=== PATIENT | female | born 1965 | race Caucasian/White ===

== ENCOUNTER 2017-07-14 08:37 | Emergency (ER) | payer OTHER ==
[~2017-07-14] VITALS: Ht 167.6 cm; Wt 80.7 kg
[~2017-07-14 08:37] MED LIST: CITA10TA8 PO
--- NOTE | 2017-07-14 08:54 | PHYS DOC ---
Past History Past Medical History: Depression, Diverticulitis Past Surgical History: Additional Past Surgical Histo: D&C Smoking: Cigarettes Alcohol Use: Occasionally Drug Use: None Adult General HPI HPI Patient is a 52 year old F who presents with LLQ abd pain. Patient has a history of diverticulitis. Patient states for the past 3 days she's developed some left lower quadrant pain with dark stools and mucus in her stools however denies any fevers. Patient denies any nausea or vomiting. Patient states she has frequent bouts of diverticulitis. Patient is no other complaints. Review of Systems Review of Systems GEN: Denies fevers, chills, sweats HEENT: Denies blurred vision, sore throat CV: Denies chest pain RESP: Denies shortness of air, cough GI: Abdominal pain NEURO: Denies confusion, dizziness MSK: Denies weakness, joint pain/swelling Allergies Allergies Allergies Coded Allergies Type Severity Reaction Last Updated Verified Penicillins Allergy Unknown Itching 12/15/14 Yes Physical Exam Physical Exam GEN.: No apparent distress. Alert and oriented. HEENT: Head is normocephalic, atraumatic NECK: Supple. LUNGS: CTAB. HEART: RRR, S1, S2 present. Peripheral pulses intact ABDOMEN: Soft, tenderness palpation left lower quadrant, rebound tenderness, voluntary guarding, no abdominal distention. Positive bowel sounds. EXTREMITIES: Without any cyanosis. NEUROLOGIC: Normal speech, normal tone PSYCHIATRIC: Normal affect, normal mood. SKIN: No ulcerations Current Patient Data Vital Signs Laboratory Tests Test 07/14/17 09:04 07/14/17 09:05 White Blood Count 10.7 x10^3/uL Red Blood Count 4.43 x10^6/uL Hemoglobin 13.5 g/dL Hematocrit 39.5 % Mean Corpuscular Volume 89 fL Mean Corpuscular Hemoglobin 30 pg Mean Corpuscular Hemoglobin Concent 34 g/dL Red Cell Distribution Width 13.0 % Platelet Count 272 x10^3/uL Neutrophils (%) (Auto) 77 % Lymphocytes (%) (Auto) 14 % Monocytes (%) (Auto) 7 % Eosinophils (%) (Auto) 1 % Basophils (%) (Auto) 1 % Neutrophils # (Auto) 8.1 x10^3uL Lymphocytes # (Auto) 1.5 x10^3/uL Monocytes # (Auto) 0.8 x10^3/uL Eosinophils # (Auto) 0.2 x10^3/uL Basophils # (Auto) 0.1 x10^3/uL Sodium Level 142 mmol/L Potassium Level 4.2 mmol/L Chloride Level 107 mmol/L Carbon Dioxide Level 26 mmol/L Anion Gap 9 Blood Urea Nitrogen 15 mg/dL Creatinine 0.8 mg/dL Estimated GFR (Cockcroft-Gault) 74.7 BUN/Creatinine Ratio 19 Glucose Level 100 mg/dL Lactic Acid Level 1.5 mmol/L Calcium Level 9.1 mg/dL Total Bilirubin 0.4 mg/dL Aspartate Amino Transf (AST/SGOT) 10 U/L Alanine Aminotransferase (ALT/SGPT) 26 U/L Alkaline Phosphatase 85 U/L Total Protein 7.2 g/dL Albumin 3.5 g/dL Albumin/Globulin Ratio 0.9 Lipase 63 U/L Urine Collection Type Unknown Urine Color Yellow Urine Clarity Hazy Urine pH 5.5 Urine Specific Fence 1.020 Urine Protein Neg Urine Glucose (UA) Neg mg/dL Urine Ketones (Stick) Neg mg/dL Urine Blood Small Urine Nitrite Neg Urine Bilirubin Neg Urine Urobilinogen Dipstick 0.2 mg/dL Urine Leukocyte Esterase Trace Urine RBC 1-2 /HPF Urine WBC 1-4 /HPF Urine Squamous Epithelial Cells Many /LPF Urine Bacteria Few /HPF Urine Mucus Slight /LPF Current Medications Medications (Trade) Dose Ordered Sig/Mary Route PRN Reason Start Time Stop Time Status Last Admin Dose Admin Sodium Chloride 1,000 ml @ 1,000 mls/hr 1X ONCE IV 07/14/17 09:00 07/14/17 09:59 DC 07/14/17 09:00 Iohexol (Omnipaque 300 Mg/ml) 75 ml 1X ONCE IV 07/14/17 09:00 07/14/17 09:05 DC 07/14/17 09:24 Info (Do NOT chart on this entry -- for MONITORING) 1 each PRN DAILY PRN MC SEE COMMENTS 07/14/17 09:15 07/16/17 09:14 Fentanyl Citrate (Fentanyl 2ml Vial) 100 mcg STK-MED ONCE .ROUTE 07/14/17 09:51 07/14/17 09:52 DC Fentanyl Citrate (Fentanyl 2ml Vial) 50 mcg 1X ONCE IV 07/14/17 10:00 07/14/17 10:06 DC 07/14/17 10:00 EKG EKG [] Radiology/Procedures Radiology/Procedures CT scan abdomen pelvis shows acute diverticulitis no abscess or perforation[] Course & Med Decision Making Course & Med Decision Making Pertinent Labs and Imaging studies reviewed. (See chart for details) ED course: Patient was seen and examined emergency room abdominal workup was ordered along with a CT scan abdomen pelvis 1025: Patient up date on CT findings and plan to discharge home with oral antibiotics and short-term follow-up with PCP. MDM: After reviewing the chart, CC/HPI/PMH, physical exam, [lab results], [ radiological results], I do not believe the patient has a surgical emergency and the abdomen warm team further workup and/or admission at this time. Patient has not complicated diverticulitis pigmy treated with oral antibiotics and discharged home. Recommended short-term follow-up with PCP for further evaluation and management. Patient is stable for discharge. Additional verbal discharge instructions were provided to the patient and that if symptoms get worse or any new symptoms arise that are worrisome to the patient she is to return to the emergency room immediately [] Dragon Disclaimer Dragon Disclaimer This chart was dictated in whole or in part using Voice Recognition software in a busy, high-work load, and often noisy Emergency Department environment. It may contain unintended and wholly unrecognized errors or omissions. Departure Departure: Impression: Primary Impression: Diverticulitis Disposition: 01 HOME, SELF-CARE Condition: IMPROVED Referrals: JOSE RAUL STUART (PCP) Patient Instructions: Diverticulitis, [id number] Additional Instructions: Please follow up with your family physician in the next one to 2 days return if symptoms increase Scripts Metronidazole (FLAGYL) 500 Mg Tablet 500 MG PO TID for 10 Days, #30 TAB Prov: MARLYS BURCH DO 07/14/17 Ciprofloxacin Hcl (CIPRO) 500 Mg Tablet 1 TAB PO BID, #20 TAB Prov: MARLYS BURCH DO 07/14/17 MARLYS BURCH DO Jul 14, 2017 08:54
[2017-07-14 08:55] VITALS: BP 147/83
[2017-07-14] MEDS: IV NORMAL SALINE 1,000ML 1,000 ML IV ONE (09:00)
[2017-07-14] MEDS ORDERED: CONTRAST GIVEN MC PRN (09:15)
[2017-07-14 09:20] LABS: BASO # 0.1 x10^3/uL (0.0-0.2); BASO % 1 % (0-3); EOS # 0.2 x10^3/uL (0.0-0.7); EOS % 1 % (0-3); HEMATOCRIT 39.5 % (36.0-47.0); HEMOGLOBIN 13.5 g/dL (12.0-15.5); LYMPH # 1.5 x10^3/uL (1.0-4.8); LYMPH % 14 % (24-48); MEAN CORPUSCULAR HEMOGLOBIN 30 pg (25-35); MEAN CORPUSCULAR HGB CONC 34 g/dL (31-37); MEAN CORPUSCULAR VOLUME 89 fL (79-100); MONO # 0.8 x10^3/uL (0.0-1.1); MONO % 7 % (0-9); NEUT # 8.1 x10^3uL (1.8-7.7); NEUT % 77 % (31-73); PLATELET COUNT 272 x10^3/uL (140-400); RED BLOOD COUNT 4.43 x10^6/uL (3.50-5.40); WHITE BLOOD COUNT 10.7 x10^3/uL (4.0-11.0)
[2017-07-14] MEDS: IOHEXOL 300 MG/ML 75 ML VIAL. IV ONE (09:24)
[2017-07-14 09:33] LABS: BILIRUBIN,URINE NEG (NEG); CLARITY,URINE HAZY; COLOR,URINE YELLOW; GLUCOSE,URINE NEG (NEG)
[2017-07-14 09:34] LABS: BACTERIA,URINE FEW /HPF (0-FEW); NITRITE,URINE NEG (NEG); SQUAMOUS EPITHELIAL CELL,UR MANY /LPF; UROBILINOGEN,URINE 0.2 mg/dL (0.2 mg/dL)
[2017-07-14 09:35] LABS: ALBUMIN 3.5 g/dL (3.4-5.0); ALBUMIN/GLOBULIN RATIO 0.9 (1.0-1.7); CALCIUM 9.1 mg/dL (8.5-10.1); CREATININE 0.8 mg/dL (0.6-1.0); GFR 74.7; POTASSIUM 4.2 mmol/L (3.5-5.1); TOTAL BILIRUBIN 0.4 mg/dL (0.2-1.0); TOTAL PROTEIN 7.2 g/dL (6.4-8.2)
--- NOTE | 2017-07-14 09:59 | RAD ---
CT scan of the abdomen and pelvis with contrast 07/14/2017 Clinical history: Left lower quadrant abdominal pain for 2 days. Technique: After the intravenous administration of 75 cc of Omnipaque 300, contiguous, 5 mm axial sections were obtained through the abdomen and pelvis. One or more of the following individualized dose reduction techniques were utilized for this study: 1. Automated exposure control. 2. Adjustment of the mA and/or kV according to patient size. 3. Use of iterative reconstruction technique. Findings: Images through the lung bases are within normal limits. Decreased attenuation of the liver parenchyma seen consistent with fatty infiltration. The liver is mildly enlarged measuring 22 cm in length. The spleen, pancreas, adrenal glands and kidneys are within normal limits. The abdominal aorta tapers normally. Calcified gallstone is seen within the dependent portions of the gallbladder. No free fluid or free air is seen within the abdomen. Air and stool seen throughout the colon. Multiple diverticula are seen involving the colon. No inflammatory changes are seen in the adjacent fat. The appendix is well visualized and within normal limits. Multiple diverticula are seen involving the sigmoid colon. Wall thickening of the distal and mid sigmoid colon is seen. Increased density is seen within the adjacent fat. These findings are consistent with sigmoid diverticulitis. No abnormal fluid collection is seen to suggest evidence of an abscess. Images through the pelvis demonstrate the urinary bladder distended with urine. A small amount of free fluid is seen within the pelvis. Calcifications are seen within the pelvis consistent with phleboliths. Degenerative changes are seen involving the lower thoracic and mid and lower lumbar spine and both hips. Impression: Findings are seen consistent with sigmoid diverticulitis. No abscess is seen.
[2017-07-14] MEDS ORDERED: CIPR500T94 PO (10:27)
[2017-07-14] MEDS ORDERED: METR500T PO (10:27)
== END 2017-07-14 10:36 | disposition home or self-care (01) ==
LOC: ER 08:37
DX: K57.92 Diverticulitis of intestine, part unspecified, without perforation or abscess without bleeding (principal); F17.210 Nicotine dependence, cigarettes, uncomplicated; Z88.0 Allergy status to penicillin
CPT/HCPCS: 36415; 74177; 80053; 81001; 83605; 83690; 85025; 87086; 96361; 96374; J3010; Q9967; 99285-25; J7030

== ENCOUNTER 2018-08-05 17:00 | Emergency (ER) | payer OTHER ==
[~2018-08-05] VITALS: Ht 167.6 cm; Wt 80.0 kg
[~2018-08-05 17:00] MED LIST changes: +CIPR500T94 PO; +METR500T PO
[2018-08-05] MEDS ORDERED: BACITRACIN ZINC TOPICAL OINT PACKET. TP ONE (18:30)
[2018-08-05] MEDS ORDERED: AMOXICILLIN/K CLAV 875/125MG TABLET. PO ONE (18:30)
[2018-08-05] MEDS ORDERED: DIPHTH,PERTUSS(ACELL),TET TOX 0.5 ML DISP.SYRIN. VAX IM ONE (18:30)
[2018-08-05] MEDS ORDERED: AMOX1TAB61 PO (19:28)
--- NOTE | 2018-08-05 19:29 | PHYS DOC ---
Past History Past Medical History: No Pertinent History Past Surgical History: , Other Additional Past Surgical Histo: D&C, shoulder Smoking: Cigarettes Alcohol Use: None Drug Use: None Adult General Chief Complaint Chief Complaint: ANIMAL BITE HPI HPI 53-year-old female presents she was out walking her dog and her neighbors dog ended up coming up and trying to fight with her dog. Patient subsequently ended up getting bit to her left pinky finger as well as to her left calf. Patient reports last tetanus booster greater than 5 years ago. Patient reports the other dog was reportedly up-to-date on its vaccinations however animal control was keeping the dog "quarantined ". Patient reports pain worse to her left pinky finger and is concerned it might be broken. Denies other injury. Review of Systems Review of Systems Constitutional: Denies fever or chills [] Eyes: Denies change in visual acuity, redness, or eye pain [] HENT: Denies nasal congestion or sore throat [] Respiratory: Denies cough or shortness of breath [] GI: Denies abdominal pain, nausea, vomiting, or diarrhea [] : Denies dysuria or hematuria [] Musculoskeletal: Reports pain to left pinky finger and left calf at site of dog bites Integument: Abrasions/lacerations/puncture wound to left calf and left pinky finger Neurologic: Denies headache, focal weakness or sensory changes [] Complete systems were reviewed and found to be within normal limits, except as documented in this note. Current Medications Current Medications Current Medications Medications (Trade) Dose Ordered Sig/Mary Start Time Stop Time Status Last Admin Dose Admin Amoxicillin/ Clavulanate Potassium (Augmentin 875/ 125mg) 1 tab 1X ONCE 08/05/18 18:30 08/05/18 18:39 DC 08/05/18 19:05 1 TAB Bacitracin (Bacitracin Topical Pkt) 1 pkt 1X ONCE 08/05/18 18:30 08/05/18 18:33 DC 08/05/18 19:05 1 PKT Diphtheria/ Tetanus/Acell Pertussis (Boostrix) 0.5 ml ONCE ONCE 08/05/18 18:30 08/05/18 18:33 DC 08/05/18 19:07 0.5 ML Allergies Allergies Allergies Coded Allergies Type Severity Reaction Last Updated Verified Penicillins Allergy Unknown Itching 12/15/14 Yes Physical Exam Physical Exam Constitutional: Well developed, well nourished, no acute distress, non-toxic appearance. [] HENT: Normocephalic, atraumatic Eyes: Conjunctiva normal, no discharge. [] Neck: Normal range of motion, no tenderness, supple Cardiovascular: Heart rate regular rhythm, capillary refill less than 2 seconds , bilateral radial and posterior tibialis pulses +2/4 Lungs & Thorax: Bilateral breath sounds clear to auscultation [] Skin: Warm, dry, three superficial lacerations to posterior aspect of left calf , small puncture wound noted to left distal pinky finger. Mild ecchymosis noted to left pinky finger as well Extremities: No tenderness, range of motion intact, dog bites as mentioned above. Neurologic: Alert and oriented X 3, normal motor function, normal sensory function, no focal deficits noted. [] Psychologic: Affect normal, judgement normal, mood normal. [] Current Patient Data Vital Signs Vital Signs Date Time Temp Pulse Resp B/P (MAP) Pulse Ox O2 Delivery O2 Flow Rate FiO2 08/05/18 17:00 98.0 105 20 98 Room Air EKG EKG [] Radiology/Procedures Radiology/Procedures PROCEDURE: FINGER(S) LEFT History: Dog bite. The distal 5th digit pain. Comparison: None. Findings: Frontal view left hand. Oblique and lateral views of the 5th digit of left hand. No acute fracture or dislocation is identified. No radiopaque foreign body seen within the 5th digit. Impression: No acute osseous abnormality identified. Electronically signed by: Sancho Burch MD (08/05/2018 8:50 PM) [facility] DICTATED AND SIGNED BY: SANCHO BURCH MD DATE: 08/05/182048 Course & Med Decision Making Course & Med Decision Making Pertinent Labs and Imaging studies reviewed. (See chart for details) Patient presents with report of dog bite to left pinky finger as well as left calf. Tetanus updated. Wounds cleaned and dressed. Empiric antibiotics initiated. Patient did report some allergy to penicillin when patient was in her 20s which caused some itching. Discussed with patient and elected to proceed with Augmentin. Patient without any side effects while monitored in the department. XR of left pinky finger without definative sign of acute fracture. Cannot fully exclude nondisplaced fracture. Finger splint applied for comfort. Patient stable for discharge with outpatient follow-up with PCP. Discussed findings and plan with patient, who acknowledges understanding and agreement. Aryan Disclaimer Dragon Disclaimer This electronic medical record was generated, in whole or in part, using a voice recognition dictation system. Departure Departure: Impression: Primary Impression: Dog bite Additional Impression: Finger sprain Disposition: 01 HOME, SELF-CARE Condition: STABLE Referrals: JOSE RAUL STUART (PCP) Patient Instructions: Animal Bite, [id number] Additional Instructions: Use over the counter Tylenol or Ibuprofen for pain. Keep area clean and dry. Clean daily with soap and water. Do not soak wound. Dress area with bandage and use over the counter antibiotic ointment. Scripts Amoxicillin/Potassium Clav (AUGMENTIN 875-125 TABLET) 1 Each Tablet 1 TAB PO BID, #14 TAB Prov: SANCHO KIRKPATRICK DO 08/05/18 Splinting Splinting : Location: left pinky finger Pre-Made Type: metal (finger splint) Splint: finger splint Pre-Proc Neuro Vasc Exam: normal Post-Proc Neuro Vasc Exam: normal, unchanged from pre-exam Problem Qualifiers Primary Impression: Dog bite Encounter type: initial encounter Qualified Codes: W54.0XXA - Bitten by dog , initial encounter Additional Impression: Finger sprain Encounter type: initial encounter Finger: little finger Sprain of finger site: interphalangeal joint Laterality: left Qualified Codes: S63.637A - Sprain of interphalangeal joint of left little finger, initial encounter SANCHO KIRKPATRICK DO Aug 05, 2018 19:29
[2018-08-05 19:41] VITALS: BP 150/74
--- NOTE | 2018-08-05 20:53 | RAD ---
History: Dog bite. The distal 5th digit pain. Comparison: None. Findings: Frontal view left hand. Oblique and lateral views of the 5th digit of left hand. No acute fracture or dislocation is identified. No radiopaque foreign body seen within the 5th digit. Impression: No acute osseous abnormality identified. Electronically signed by: Sancho Burch MD (08/05/2018 8:50 PM) [facility]
== END 2018-08-05 19:36 | disposition home or self-care (01) ==
LOC: ER 18:40
DX: S81.812A Laceration without foreign body, left lower leg, initial encounter (principal); S63.637A Sprain of interphalangeal joint of left little finger, initial encounter; F17.210 Nicotine dependence, cigarettes, uncomplicated; Z88.0 Allergy status to penicillin; W54.0XXA Bitten by dog, initial encounter; Y93.K1 Activity, walking an animal; Y92.89 Other specified places as the place of occurrence of the external cause; Y99.8 Other external cause status
CPT/HCPCS: 29130; 73140; 90471; 90715; 99284-25

== ENCOUNTER 2019-04-21 12:34 | Inpatient (IN) | payer OTHER ==
[~2019-04-21] VITALS: Ht 165.1 cm; Wt 76.7 kg
[~2019-04-21 12:34] MED LIST changes: +AMOX1TAB61 PO
[2019-04-21] MEDS ORDERED: IV NORMAL SALINE 1,000ML 1,000 ML IV SCH (13:23)
--- NOTE | 2019-04-21 13:28 | PHYS DOC ---
Past History Past Medical History: No Pertinent History Past Surgical History: , Other Additional Past Surgical Histo: D&C, shoulder Smoking: Cigarettes Alcohol Use: None Drug Use: None Adult General Chief Complaint Chief Complaint: DIZZY/LIGHT HEADED HPI HPI Patient is a 53 year old female who presents with complaint of dizziness, nausea, and shortness of breath. Patient states that she has been experiencing episodes of these symptoms since 2-3 days ago. Notes that the symptoms come on randomly. Notes that she awoke with nausea and dizziness this morning. Denies any difficulty with speech, vision loss, swallowing, unilateral weakness, chest pain, or abdominal pain. States that the symptoms are not associated with exertion. States that currently well at rest she is experiencing no symptoms. Denies any significant past medical history. Is an active smoker. Review of Systems Review of Systems Constitutional: Denies fever or chills [] Eyes: Denies change in visual acuity, redness, or eye pain [] HENT: Denies nasal congestion or sore throat [] Respiratory: Shortness of breath, denies cough[] Cardiovascular: "Chest fluttering," denies edema[] GI: Nausea, vomiting, denies abdominal pain, bloody stools or diarrhea [] : Denies dysuria or hematuria [] Musculoskeletal: Denies back pain or joint pain [] Integument: Denies rash or skin lesions [] Neurologic: Dizziness, lightheadedness, denies focal weakness or sensory c hanges[] All other systems were reviewed and found to be within normal limits, except as documented in this note. Allergies Allergies Allergies Coded Allergies Type Severity Reaction Last Updated Verified Penicillins Allergy Unknown Itching 12/15/14 Yes Physical Exam Physical Exam Constitutional: Well developed, well nourished, no acute distress, non-toxic appearance. [] HENT: Normocephalic, atraumatic, bilateral external ears normal, oropharynx moist, no oral exudates, nose normal. [] Eyes: PERRLA, EOMI, conjunctiva normal, no discharge. [] Neck: Normal range of motion, no tenderness, supple, no stridor. [] Cardiovascular:Heart rate regular rhythm, no murmur [] Lungs & Thorax: Bilateral breath sounds clear to auscultation [] Abdomen: Bowel sounds normal, soft, no tenderness, no masses, no pulsatile masses. [] Skin: Warm, dry, no erythema, no rash. [] Back: No tenderness, no CVA tenderness. [] Extremities: No tenderness, no cyanosis, no clubbing, ROM intact, no edema. [] Neurologic: Alert and oriented X 3, normal motor function, normal sensory function, no focal deficits noted. [] Current Patient Data Vital Signs Vital Signs Date Time Temp Pulse Resp B/P (MAP) Pulse Ox O2 Delivery O2 Flow Rate FiO2 04/21/19 12:37 98.2 73 18 98 Room Air EKG EKG Interpreted by me: Heart rate 72, sinus rhythm, normal intervals, normal axis, no acute ST/T-wave abnormalities present[] Radiology/Procedures Radiology/[place] [address] IMAGING REPORT Signed PATIENT: MARION PATEL ACCOUNT: [id number] : 1965 LOCATION: ER AGE: 53 SEX: F EXAM STATUS: REG ER ORD. PHYSICIAN: DULCE WANG MD REASON: chest 'fluttering' PROCEDURE: PORTABLE CHEST 1V PORTABLE CHEST 1V Clinical Indication: Chest fluttering Comparison: None. Findings: The cardiomediastinal silhouette is normal. Lungs are clear. There is no pneumothorax. No pleural effusion is appreciated. No acute bone abnormality. IMPRESSION: No acute cardiopulmonary process. Electronically signed by: Raciel Mina MD (04/21/2019 2:18 PM) [id number] DICTATED AND SIGNED BY: RACIEL MINA MD DATE: 04/21/19 1418 CC: JOSE RAUL STUART; DULCE WANG MD ~ [] Course & Med Decision Making Course & Med Decision Making Pertinent Labs and Imaging studies reviewed. (See chart for details) Patient was given meclizine and IV fluids in the emergency department. Patient's blood work shows no acute abnormality. The patient however continues to have recurrent symptoms. Etiology is unclear at this time. Due to continued symptoms, the patient will be admitted for further testing. I spoke with Dr. Whitehead who has accepted care of patient in hospital. A consult was placed to Dr. Daigle of cardiology to follow patient in hospital.[] Dragon Disclaimer Dragon Disclaimer This electronic medical record was generated, in whole or in part, using a voice recognition dictation system. Departure Departure: Impression: Primary Impression: Near syncope Disposition: 09 ADMITTED INPATIENT Admitting Physician: Shayan Whitehead Condition: STABLE Referrals: JOSE RAUL STUART (PCP) DULCE WANG MD Apr 21, 2019 13:28
[2019-04-21 13:32] LABS: BASO % 1 % (0-3); EOS # 0.1 x10^3/uL (0.0-0.7); EOS % 3 % (0-3); HEMATOCRIT 41.2 % (36.0-47.0); HEMOGLOBIN 13.7 g/dL (12.0-15.5); LYMPH # 2.2 x10^3/uL (1.0-4.8); LYMPH % 42 % (24-48); MEAN CORPUSCULAR HEMOGLOBIN 30 pg (25-35); MEAN CORPUSCULAR HGB CONC 33 g/dL (31-37); MEAN CORPUSCULAR VOLUME 90 fL (79-100); MONO # 0.5 x10^3/uL (0.0-1.1); MONO % 10 % (0-9); NEUT # 2.3 x10^3uL (1.8-7.7); NEUT % 45 % (31-73); PLATELET COUNT 202 x10^3/uL (140-400); RED BLOOD COUNT 4.59 x10^6/uL (3.50-5.40); RED CELL DISTRIBUTION WIDTH 12.3 % (11.5-14.5); WHITE BLOOD COUNT 5.1 x10^3/uL (4.0-11.0)
[2019-04-21] MEDS ORDERED: MECLIZINE 12.5 MG TABLET. PO PRN (13:45)
[2019-04-21] MEDS ORDERED: ONDANSETRON PF 4 MG/2 ML VIAL. IV ONE (13:45)
[2019-04-21 13:48] LABS: ALBUMIN 3.9 g/dL (3.4-5.0); ALBUMIN/GLOBULIN RATIO 1.3 (1.0-1.7); CALCIUM 9.6 mg/dL (8.5-10.1); CREATININE 0.7 mg/dL (0.6-1.0); GFR 86.9; POTASSIUM 3.6 mmol/L (3.5-5.1); TOTAL BILIRUBIN 0.3 mg/dL (0.2-1.0)
--- NOTE | 2019-04-21 14:21 | RAD ---
PORTABLE CHEST 1V Clinical Indication: Chest fluttering Comparison: None. Findings: The cardiomediastinal silhouette is normal. Lungs are clear. There is no pneumothorax. No pleural effusion is appreciated. No acute bone abnormality. IMPRESSION: No acute cardiopulmonary process. Electronically signed by: Raciel Mina MD (04/21/2019 2:18 PM) [id number]
[2019-04-21 14:42] LABS: BACTERIA,URINE FEW /HPF (0-FEW); BILIRUBIN,URINE NEG (NEG); CLARITY,URINE CLEAR; COLOR,URINE YELLOW; GLUCOSE,URINE NEG (NEG); NITRITE,URINE NEG (NEG); RBC,URINE 0 /HPF (0-2); UROBILINOGEN,URINE 0.2 mg/dL (0.2 mg/dL)
[2019-04-21 14:43] LABS: SQUAMOUS EPITHELIAL CELL,UR MANY /LPF
--- NOTE | 2019-04-21 15:53 | EKG ---
[address] [address] Test Date: 2019-04-21 Test Time: 12:44:28 Pat Name: MARION PATEL Department: Room: 115 A Gender: F [employer] Manager: JANINE : 1965 Requested By: DULCE WANG Order Number: [id number] Reading MD: Stoney Daigle MD Measurements Intervals [place] Rate: 72 P: 55 CO: 152 QRS: 36 QRSD: 88 T: 29 QT: 392 QTc: 431 Interpretive Statements SINUS RHYTHM Electronically Signed On 04-22-2019 16:29:48 CDT by Stoney Daigle MD
[2019-04-21 16:28] VITALS: BP 119/71
[2019-04-21] MEDS ORDERED: ONDANSETRON PF 4 MG/2 ML VIAL. IV PRN (16:30)
[2019-04-21] MEDS: IV NORMAL SALINE 1,000ML 1,000 ML IV SCH (16:53)
[2019-04-21] MEDS ORDERED: BUPR100T7 PO (17:41)
[2019-04-21 19:00] VITALS: BP 131/74
[2019-04-21 22:49] VITALS: BP 122/66
[2019-04-22] MEDS: IV NORMAL SALINE 1,000ML 1,000 ML IV SCH ×2 (00:39→08:07)
[2019-04-22 05:47] VITALS: BP 131/72
[2019-04-22 06:10] LABS: BASO % 1 % (0-3); EOS # 0.2 x10^3/uL (0.0-0.7); EOS % 5 % (0-3); HEMATOCRIT 36.1 % (36.0-47.0); LYMPH # 2.1 x10^3/uL (1.0-4.8); LYMPH % 44 % (24-48); MEAN CORPUSCULAR HEMOGLOBIN 30 pg (25-35); MEAN CORPUSCULAR HGB CONC 33 g/dL (31-37); MEAN CORPUSCULAR VOLUME 91 fL (79-100); MONO # 0.4 x10^3/uL (0.0-1.1); MONO % 9 % (0-9); NEUT # 1.9 x10^3uL (1.8-7.7); NEUT % 41 % (31-73); PLATELET COUNT 172 x10^3/uL (140-400); RED BLOOD COUNT 3.95 x10^6/uL (3.50-5.40); RED CELL DISTRIBUTION WIDTH 12.5 % (11.5-14.5); WHITE BLOOD COUNT 4.7 x10^3/uL (4.0-11.0)
[2019-04-22 06:14] LABS: CALCIUM 8.7 mg/dL (8.5-10.1); CREATININE 0.8 mg/dL (0.6-1.0); GFR 74.5; POTASSIUM 4.2 mmol/L (3.5-5.1)
[2019-04-22] MEDS ORDERED: NICOTINE 7MG PATCH. TD SCH (09:00)
[2019-04-22] MEDS ORDERED: buPROPion 75 MG TABLET PO SCH (09:00)
[2019-04-22 11:11] VITALS: BP 113/67
--- NOTE | 2019-04-22 14:40 | RAD ---
Examination: CT HEAD WO CONTRAST History: Recurrent episodes of dizziness and headache. Nausea and vomiting. Comparison/Correlation: None Findings: Axial images of the head routine without contrast. Ventricles are normal size. No intracranial hemorrhage, midline shift, or mass effect. Visualized paranasal sinuses are unremarkable. Impression: No suspicious process. PQRS Compliance Statement: One or more of the following individualized dose reduction techniques were utilized for this examination: 1. Automated exposure control 2. Adjustment of the mA and/or kV according to patient size 3. Use of iterative reconstruction technique Electronically signed by: Juwan Yang MD (04/22/2019 2:37 PM) [facility]
[2019-04-22] MEDS ORDERED: ACETAMINOPHEN 325 MG TABLET PO PRN (15:30)
[2019-04-22 15:48] VITALS: BP 130/69
--- NOTE | 2019-04-22 16:19 | HP ---
ADMIT DATE: 04/21/2019 HISTORY OF PRESENT ILLNESS: The patient is a 53-year-old female patient who presented to Emergency Room with dizziness, nausea and shortness of breath. She stated that all these symptoms started on Saturday morning, after eating her breakfast and exercising, felt dizzy and has nausea and vomiting. She was fine on Saturday and Saturday. Yesterday, she had again felt dizzy, but she started also having palpitations and pain around her shoulders and that is why she decided to come to the hospital for further evaluation. She feels things are spinning around; however, she has never fallen. She denied any tingling or numbness. Denied any weakness. The symptoms are not associated with exertion. She was evaluated in the Emergency Room and was basically admitted, was given IV fluids and meclizine in the Emergency Department and her lab works were unremarkable. She has had first set of cardiac enzyme, which was less than 0.017, was admitted to do more sets of cardiac enzyme and to consult the cardiology team. PAST MEDICAL HISTORY: Significant for obstructive sleep apnea, for which she is on CPAP. 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 PAST SURGICAL HISTORY: Significant for 2 sections. She has left ankle fracture and skin cancer removed from the left shoulder. She also underwent colonoscopy. ALLERGIES: SHE IS ALLERGIC TO PENICILLIN. MEDICATIONS: She is currently on Wellbutrin 75 mg once a day. FAMILY HISTORY: She has one sister, younger and healthy. Her father is still alive at age of 77 and has colon cancer, kidney cancer and prostate cancer. Mother is alive at age of 77 and has dementia. SOCIAL HISTORY: She is , has a son and a daughter from previous marriage. She smokes half a pack a day, drinks alcohol occasionally. 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 REVIEW OF SYSTEMS: The patient denied any blurring of vision, cataract, glaucoma or macular degeneration. Denied any earache, tinnitus or sensorineural deafness. Denied any nosebleeds, stuffy nose or postnasal drip. Denied any sore throat, sore tongue. Did complain of nausea and vomiting, but denied any diarrhea or constipation. Denied any hematemesis, melena or hematochezia. Denied any dysuria, frequency or hematuria. Denied any chest pain. Did complain of palpitations. Denied any shortness of breath, but denied any orthopnea or paroxysmal nocturnal dyspnea. Denied any cough, phlegm or hemoptysis. Did complain of dizziness and things spinning around. PHYSICAL EXAMINATION: GENERAL: On arrival to the Emergency Room, she looked well and was clearly in no apparent respiratory distress. No pallor, jaundice, cyanosis, or thyromegaly. No jugular venous distension. No limb edema. VITAL SIGNS: Her heart rate was 73, blood pressure was 110/67, temperature was 98.2, respiratory rate was 18 and oxygen saturation was 98%. EXAMINATION OF THE HEAD, EYES, EARS, NOSE AND THROAT: Showed normocephalic, atraumatic. NECK: Supple. HEART: Showed normal first and second heart sounds. No gallop, rub or murmur. CHEST: Clear to auscultation. No crepitation or rhonchi. ABDOMEN: Distended, soft, nontender. NEUROLOGICALLY: She was awake, alert, responding appropriately. All her cranial nerves intact. EXTREMITIES: She moves extremities without difficulty. LABORATORY DATA: Her lab work showed serum sodium of 143, potassium 3.6, chloride 107, bicarbonate 25, anion gap of 11, BUN 14, creatinine 0.7, estimated GFR was 87 mL per minute. Her glucose 107, calcium was 9.6, magnesium 2. Total bilirubin, AST, ALT, alkaline phosphatase were normal. Her first set of enzymes showed troponin to be less than 0.017. Total protein was 7, albumin was 3.9. Lipase was 46. Urinalysis was essentially unremarkable and was negative for nitrite, leukocyte esterase, no rbc's, no wbc's, and no bacteria. Another chest x-ray, which showed the cardiomediastinal silhouette is normal. Lungs are clear. There is no pneumothorax or pleural effusion, no acute bony abnormalities. ASSESSMENT AND PLAN: The patient was admitted with near syncope, according to ER physician. We will obviously do 2 more cardiac enzymes, consult the cardiology as her initial EKG was unremarkable and she was in sinus rhythm with a heart rate of 72 beats per minute with normal intervals, normal axis, no acute ST-T changes. REGINA CABAN MD DR: ESTEPHANIA/lamar JOB#: [id number] / [id number]
--- NOTE | 2019-04-22 17:02 | CONS ---
DATE OF CONSULTATION: 04/22/2019 REASON FOR CONSULTATION: Near syncope. HISTORY OF PRESENT ILLNESS: The patient is a pleasant 53-year-old woman with past medical history as noted below, who presents to the hospital in the setting of dizziness that has occurred over the last 2-3 days. This has progressively gotten worse to a point where she also had some mid scapular pain and this prompted arrival to the ER. She was admitted for rule out. She denies any current anginal discomfort, dyspnea, orthopnea or PND. She did have some dizziness upon standing and walking around. Her telemetry thus far does not reveal any pathology. Her orthostatic vital signs, EKG and cardiac enzymes are unremarkable. She denies any other prior cardiac interventions or history. PAST MEDICAL HISTORY: Obstructive sleep apnea. SOCIAL HISTORY: She smokes. 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 She is . She has a father who is undergoing major surgery in the near future and she feels that she also may be anxious regarding this episode and this could also prompt her symptoms. REVIEW OF SYSTEMS: Negative for 10 out of 14 systems reviewed, unless otherwise mentioned above in HPI. ALLERGIES: No known drug allergies. MEDICATIONS: No cardiovascular medications. PHYSICAL EXAMINATION: VITAL SIGNS: Stable. GENERAL: She is alert and oriented, in no acute distress. HEAD AND NECK: Unremarkable. CARDIAC: Regular rate and rhythm without any murmurs, rubs or gallops. LUNGS: Clear to auscultation. ABDOMEN: Obese, protuberant, nontender. NEUROLOGIC: No focal deficits. MUSCULOSKELETAL: No trauma. DIAGNOSTIC STUDIES: 1. CT of the head is unremarkable. 2. EKG, enzymes unremarkable. IMPRESSION: Near syncope, but mostly related to what appears to be vertigo/dizziness. No obvious cardiac pathology noted. RECOMMENDATIONS: Given the patient's atypical scapular pain in the setting of history of smoking and her age and gender, we will plan to rule out any occult ischemic heart disease with an outpatient stress test. The patient understands and discussed with her and her family. No further cardiac testing necessary at this time. Okay for discharge from a cardiac standpoint. Thank you for this consultation. DARA NUNES MD DR: HAVEN/lamar JOB#: [id number] / [id number]
--- NOTE | 2019-04-23 02:07 | CONS ---
DATE OF CONSULTATION: 04/22/2019 NEUROLOGY CONSULTATION REFERRING PHYSICIAN: Shayan Whitehead MD REASON FOR CONSULTATION: Dizziness. HISTORY OF PRESENT ILLNESS: This is a 53-year-old right-handed female who was admitted to the Emergency Room after she presented with 3-day history of intermittent dizziness described as unsteadiness and vertigo. According to the patient, last Saturday, the patient started having severe dizziness described as vertigo associated with nausea and she vomited once. Next morning, the patient did not have any dizziness until yesterday when she started having recurrent spells of dizziness described as vertigo, but not associated with vomiting or nausea. The dizziness yesterday started in the morning and was associated with palpitation and pain around the left shoulder blade and scapular region. Therefore, she decided to come to the hospital for further evaluation. In the Emergency Room, the patient was found to be somewhat dehydrated and she was started on IV fluid with meclizine. Cardiac enzymes were normal along with EKG. Neuro consult was requested. Cardiology service has seen the patient today and the patient was diagnosed of possible near syncope. Neuro consult was requested to make sure there is no neurological etiology for her symptoms. Initial nonenhanced head CT scan revealed no evidence of acute intracranial process, otherwise was unremarkable. A chest x-ray with no evidence of acute cardiopulmonary process. PAST MEDICAL HISTORY: Significant for obstructive sleep apnea for which she uses CPAP. She was tested positive from her father with a gene associated with multiorgan cancers. PAST SURGICAL HISTORY: The patient had a x 2. Skin cancer removal from left shoulder. SOCIAL HISTORY: The patient is . She has 1 son and 1 daughter. She smokes half pack of cigarettes daily. She drinks alcohol occasionally. 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 FAMILY HISTORY: Father is alive at age of 77, he has colon cancer, kidney cancer and prostate cancer and he is going to have surgery soon. Mother is alive at age of 77 and has dementia. CURRENT HOME MEDICATIONS: Wellbutrin for depression 75 mg once daily. ALLERGIES: PENICILLIN. REVIEW OF SYSTEMS: A 10-point review of system was performed as mentioned above in the history of present illness. PHYSICAL EXAMINATION: GENERAL: Well-developed, well-nourished female, not in acute distress. VITAL SIGNS: She weighs 76.6 kilos, blood pressure 130/69, respiratory rate 16, pulse is 75, temperature 98.1, oxygen saturation 96% on room air. HEENT: Normocephalic, atraumatic, otherwise unremarkable. NECK: Supple. Negative for carotid bruit, lymphadenopathy or thyromegaly. LUNGS: Clear to A and P. CARDIOVASCULAR: Regular rhythm, normal S1, S2. There is no S3, S4, or murmur. ABDOMEN: Soft. Bowel sounds positive. EXTREMITIES: Negative for cyanosis, clubbing or pitting edema. NEUROLOGICAL EXAMINATION: MENTAL STATUS: The patient is alert and oriented x 3. Speech is fluent. There is no language dysfunction. Memory, judgment, and abstracting thinking are normal. The patient denies hallucination or delusion. CRANIAL NERVES: Visual brown are full. The pupils are reactive to light and accommodation. The extraocular movements are intact. There is no nystagmus. There is no facial motor or sensory deficit. Hearing is intact bilaterally. The palate is elevated symmetrically. Sternocleidomastoid muscles are powerful bilaterally. The patient shrugs her shoulders symmetrically and protrudes her tongue in the midline without fasciculation or atrophy. MOTOR: No focal muscle bulk was seen. The tone is normal. The strength is 5/5 throughout. Sensory examination revealed normal pinprick, light touch, vibratory and position senses. Deep tendon reflexes were symmetric and active without pathology responses. Gait and coordination are normal. LABORATORY DATA: CBC revealed white cells of 4.7 thousand, hemoglobin 12, hematocrit 36.1 and platelet count 172,000. Chemistry revealed sodium of 146, potassium 4.2, chloride 113, CO2 24, BUN 12, creatinine 0.8, glucose 104 and calcium 8.7. Troponin level is normal. Liver enzymes are normal with low AST. Urinalysis is trace of urinary leukocyte esterase with white blood cells, 1-4. IMPRESSION: 1. Acute onset of dizziness described as vertigo aggravated by quick body position changes, rule out vestibulopathy -- improved with hydration and meclizine. 2. History of depression and anxiety. 3. Obstructive sleep apnea required CPAP therapy. RECOMMENDATIONS: The patient has been scheduled for outpatient stress test to rule out cardiac ischemic event. M Alvin ANDRADE MD DR: ELTON/lamar JOB#: [id number] / [id number]
--- NOTE | 2019-04-23 11:28 | PN ---
DATE: 04/22/2019 SUBJECTIVE: The patient was admitted yesterday with the complaint of dizziness, palpitation and shortness of breath and pain between the two shoulders. Her EKG was unremarkable and her 2 sets of cardiac enzymes which were negative. We did actually orthostatic and showed no evidence of postural hypertension. When I examined her, however, this morning she continued to complain of being dizzy and had dizziness especially when she looks down and to the left side. Again, she denied any tingling or numbness. Denied any weakness. She did continue to have some nausea but did not vomit today. PHYSICAL EXAMINATION: GENERAL: When I examined her this afternoon, she was sitting slightly propped up in bed, in no apparent respiratory distress. No pallor, jaundice, cyanosis or thyromegaly. No jugular venous distension. No limb edema. VITAL SIGNS: Her heart rate was 73, blood pressure 113/67, temperature was 98.4, respiratory rate was 16, and oxygen saturation was 98%. HEAD, EYES, EARS, NOSE AND THROAT: Normocephalic, atraumatic. NECK: Supple. HEART: Showed normal first and second heart sounds. No gallop, murmur. CHEST: Clear to auscultation. No crepitation or rhonchi. ABDOMEN: Distended, soft, nontender. No guarding or rigidity. No organomegaly. All hernial orifices intact. Bowel sounds normal. NEUROLOGIC: She was awake, alert, responding appropriately. All her cranial nerves intact. She moves extremities without difficulty. However, she clearly feels dizzy whenever she looks down to the left. I could not elicit any nystagmus. LABORATORY DATA: Her lab work this morning showed a serum sodium 146, potassium 4.2, chloride 113, bicarbonate 24, anion gap of 9, BUN 12, creatinine 0.8. Estimated GFR was 74 mL per minute. Her glucose 104, calcium was 8.7. Her white cell count was 4700, hemoglobin 12, hematocrit 36, MCV 91, and platelet count 272,000. ASSESSMENT: Dizziness, nausea and vomiting together with headache. I did actually order a CT scan of the head without contrast. I consulted Dr. Rajan and obviously decide the further management according to his evaluation. REGINA CABAN MD DR: ESTEPHANIA/lamar JOB#: [id number] / [id number]
== END 2019-04-22 18:00 | disposition home or self-care (01) | DRG 641 ==
LOC: ER 12:34 → 1 SOUTH 15:18
PROVIDERS: ADMIT Internal Medicine; ATTEND Internal Medicine
DX: E86.0 Dehydration (principal); H81.20 Vestibular neuronitis, unspecified ear; F17.210 Nicotine dependence, cigarettes, uncomplicated; G47.33 Obstructive sleep apnea (adult) (pediatric); F32.9 Major depressive disorder, single episode, unspecified; F41.9 Anxiety disorder, unspecified; Z80.0 Family history of malignant neoplasm of digestive organs; Z80.51 Family history of malignant neoplasm of kidney; Z81.8 Family history of other mental and behavioral disorders; Z85.828 Personal history of other malignant neoplasm of skin; Z98.891 History of uterine scar from previous surgery
CPT/HCPCS: 36415; 70450; 71045; 80048; 80053; 81001; 82553; 83690; 83735; 84484; 85025; 87086; 93005; 96361; 96374; 99406; J2405; J8597; 99285-25; J7030

== ENCOUNTER 2019-04-27 08:08 | Emergency (ER) | payer OTHER ==
[~2019-04-27] VITALS: Ht 165.1 cm; Wt 75.9 kg
[~2019-04-27 08:08] MED LIST changes: +BUPR100T7 PO
[2019-04-27 08:19] VITALS: BP 145/84
[2019-04-27] MEDS ORDERED: IV NORMAL SALINE 1,000ML 1,000 ML IV SCH (08:34)
[2019-04-27] MEDS ORDERED: IOHEXOL 300 MG/ML 75 ML VIAL. IV ONE (09:00)
[2019-04-27] MEDS ORDERED: ONDANSETRON PF 4 MG/2 ML VIAL. IV ONE (09:00)
--- NOTE | 2019-04-27 09:00 | PHYS DOC ---
Past History Past Medical History: Diverticulitis Past Surgical History: Additional Past Surgical Histo: D&C, shoulder Smoking: Cigarettes Alcohol Use: None Drug Use: None Adult General Chief Complaint Chief Complaint: ABDOMINAL PAIN HPI HPI Patient is a 53 year old female who presents with complaint of abdominal pain. The patient states that her pain started 3 days ago. States she's had previous history of diverticulitis and states that her symptoms feel similar to her previous episode. Patient notes that the pain runs across the right side of her belly and down towards her lower abdomen. Denies any associated fever but has had small amounts of blood in stool and has had nausea. Was reduced admitted to the hospital last week for vertigo symptoms which she states has improved. States that she started however having worsening abdominal pain and states that she feels that this may have caused her symptoms that she was experiencing last week. No fever, shortness breath, or chest pain. Rates her pain at rest as 6 out of 10. Notes that the pain worsens with movement. Review of Systems Review of Systems Constitutional: Denies fever or chills [] Eyes: Denies change in visual acuity, redness, or eye pain [] HENT: Denies nasal congestion or sore throat [] Respiratory: Denies cough or shortness of breath [] Cardiovascular: Denies chest pain or edema[] GI: Abdominal pain, nausea, bloody stool[] : Denies dysuria or hematuria [] Musculoskeletal: Denies back pain or joint pain [] Integument: Denies rash or skin lesions [] Neurologic: Denies headache, focal weakness or sensory changes [] All other systems were reviewed and found to be within normal limits, except as documented in this note. Current Medications Current Medications Current Medications Medications (Trade) Dose Ordered Sig/Mary Start Time Stop Time Status Last Admin Dose Admin Iohexol (Omnipaque 300 Mg/ml) 75 ml 1X ONCE 04/27/19 09:00 04/27/19 09:01 Ondansetron HCl (Zofran) 4 mg 1X ONCE 04/27/19 09:00 04/27/19 09:01 Sodium Chloride 1,000 ml @ 1,000 mls/hr Q1H 04/27/19 08:34 04/27/19 09:33 Allergies Allergies Allergies Coded Allergies Type Severity Reaction Last Updated Verified Penicillins Allergy Unknown Itching 12/15/14 Yes Physical Exam Physical Exam Constitutional: Well developed, well nourished, afebrile, appears in mild to moderate discomfort. [] HENT: Normocephalic, atraumatic, bilateral external ears normal, oropharynx moist, no oral exudates, nose normal. [] Eyes: PERRLA, EOMI, conjunctiva normal, no discharge. [] Neck: Normal range of motion, no tenderness, supple, no stridor. [] Cardiovascular: Tachycardia, regular rhythm, no murmur [] Lungs & Thorax: Bilateral breath sounds clear to auscultation [] Abdomen: Bowel sounds normal, soft, bilateral lower quadrant tenderness to palpation with guarding no masses, no pulsatile masses. [] Skin: Warm, dry, no erythema, no rash. [] Back: No tenderness, no CVA tenderness. [] Extremities: No tenderness, no cyanosis, no clubbing, ROM intact, no edema. [] Neurologic: Alert and oriented X 3, normal motor function, normal sensory function, no focal deficits noted. [] Current Patient Data Vital Signs Vital Signs Date Time Temp Pulse Resp B/P (MAP) Pulse Ox O2 Delivery O2 Flow Rate FiO2 04/27/19 08:19 98.6 100 16 95 Room Air Lab Results Laboratory Tests Test 04/27/19 08:45 04/27/19 08:48 White Blood Count 12.4 x10^3/uL Red Blood Count 4.59 x10^6/uL Hemoglobin 13.9 g/dL Hematocrit 41.8 % Mean Corpuscular Volume 91 fL Mean Corpuscular Hemoglobin 30 pg Mean Corpuscular Hemoglobin Concent 33 g/dL Red Cell Distribution Width 12.7 % Platelet Count 213 x10^3/uL Neutrophils (%) (Auto) 81 % Lymphocytes (%) (Auto) 11 % Monocytes (%) (Auto) 8 % Eosinophils (%) (Auto) 0 % Basophils (%) (Auto) 1 % Neutrophils # (Auto) 10.0 x10^3uL Lymphocytes # (Auto) 1.3 x10^3/uL Monocytes # (Auto) 1.0 x10^3/uL Eosinophils # (Auto) 0.0 x10^3/uL Basophils # (Auto) 0.1 x10^3/uL Sodium Level 141 mmol/L Potassium Level 4.0 mmol/L Chloride Level 104 mmol/L Carbon Dioxide Level 25 mmol/L Anion Gap 12 Blood Urea Nitrogen 11 mg/dL Creatinine 0.8 mg/dL Estimated GFR (Cockcroft-Gault) 74.5 BUN/Creatinine Ratio 14 Glucose Level 119 mg/dL Calcium Level 9.5 mg/dL Total Bilirubin 0.6 mg/dL Aspartate Amino Transf (AST/SGOT) 10 U/L Alanine Aminotransferase (ALT/SGPT) 20 U/L Alkaline Phosphatase 109 U/L Total Protein 7.0 g/dL Albumin 3.8 g/dL Albumin/Globulin Ratio 1.2 Lipase 36 U/L Urine Collection Type Unknown Urine Color Yellow Urine Clarity Hazy Urine pH 6.5 Urine Specific [place] 1.025 Urine Protein Trace Urine Glucose (UA) Neg mg/dL Urine Ketones (Stick) Neg mg/dL Urine Blood Small Urine Nitrite Neg Urine Bilirubin Neg Urine Urobilinogen Dipstick 0.2 mg/dL Urine Leukocyte Esterase Trace Urine RBC 3-5 /HPF Urine WBC 1-4 /HPF Urine Squamous Epithelial Cells Many /LPF Urine Bacteria Mod /HPF Urine Mucus Mod /LPF Current Medications Medications (Trade) Dose Ordered Sig/Mary Route PRN Reason Start Time Stop Time Status Last Admin Dose Admin Sodium Chloride 1,000 ml @ 1,000 mls/hr Q1H IV 04/27/19 08:34 04/27/19 09:33 DC Ondansetron HCl (Zofran) 4 mg 1X ONCE IV 04/27/19 09:00 04/27/19 09:01 DC Iohexol (Omnipaque 300 Mg/ml) 75 ml 1X ONCE IV 04/27/19 09:00 04/27/19 09:01 DC 04/27/19 08:54 EKG EKG Not performed[] Radiology/Procedures Radiology/Procedures [address] [address] IMAGING REPORT Signed PATIENT: MARION PATEL ACCOUNT: [id number] : 1965 LOCATION: ER AGE: 53 SEX: F EXAM STATUS: REG ER ORD. PHYSICIAN: DULCE WANG MD REASON: bilateral lower abdominal pain, hx of diverticulitis PROCEDURE: CT ABD PELV W/ IV CONTRST ONLY PQRS Compliance Statement: One or more of the following individualized dose reduction techniques were utilized for this examination: 1. Automated exposure control 2. Adjustment of the mA and/or kV according to patient size 3. Use of iterative reconstruction technique CT abdomen/pelvis with contrast 04/27/2019 8:34 AM INDICATION: Bilateral lower abdominal pain with history of diverticulitis COMPARISON: None available TECHNIQUE: Multiple axial CT images of the abdomen and pelvis were obtained after the intravenous administration of nonionic contrast. Coronal and sagittal reformats are provided. FINDINGS: Lung bases are clear. Heart size is within normal limits. Hypoattenuation of the hepatic parenchyma suggestive of hepatic steatosis. Spleen, bilateral adrenal glands and pancreas are normal in appearance. Calcified gallstone is identified within the gallbladder without adjacent inflammation. Abdominal aorta is normal in course and caliber. There are no pathologically enlarged lymph nodes in abdomen or pelvis. There is small volume free fluid within the disc. There is no free intraperitoneal air. There is eccentric wall thickening involving the sigmoid colon in a region of diverticulosis compatible with diverticulitis. Inflamed segment measures approximately 5.5 cm. There is minimal inflammation of an adjacent small bowel loop, likely reactive. No free air to suggest perforation. There is no peridiverticular abscess. The kidneys enhance symmetrically. There is no suspicious renal mass. There is no hydronephrosis. There are no suspected calculi within the kidneys, ureters or urinary bladder. Urinary bladder is within normal limits given degree of distention. Uterus and adnexa appear normal by CT. No suspicious osseous abnormality is identified. IMPRESSION: 1. Findings are compatible with diverticulitis. No evidence for microperforation or peridiverticular abscess. Findings are identified in similar region compared to prior CT from July 14, 2017. Recommend short-term follow-up evaluation with endoscopy to exclude neoplastic etiology. 2. Mild hepatic steatosis. 3. Cholelithiasis. Electronically signed by: Evelina Méndez MD (04/27/2019 9:21 AM) [id number] DICTATED AND SIGNED BY: EVELINA MÉNDEZ MD DATE: 04/27/19 0921 CC: JOSE RAUL STUART; DULCE WANG MD ~ [] Course & Med Decision Making Course & Med Decision Making Pertinent Labs and Imaging studies reviewed. (See chart for details) CT imaging confirms acute diverticulitis with no evidence of perforation or abscess. Patient prescribed Flagyl and Cipro for continued outpatient treatment. Advised close follow-up with primary doctor in 5-7 days for reevaluation. As noted on CT by radiologist, recommended that the patient be seen by a shell sorter to be set up for endoscopy to be sure to screen for possible neoplasm. Recommended return to the emergency department for any worsening symptoms. Patient was understanding and in agreement with treatment plan.[] Dragon Disclaimer Dragon Disclaimer This electronic medical record was generated, in whole or in part, using a voice recognition dictation system. Departure Departure: Impression: Primary Impression: Acute diverticulitis Disposition: HOME, SELF-CARE Condition: STABLE Referrals: JOSE RAUL STUART (PCP) Patient Instructions: Diverticulitis Additional Instructions: Your CT scan confirmed diverticulitis as a cause of your symptoms. Of note the radiologist recommends that you follow-up for outpatient endoscopy with a shell sorter once your symptoms have improved to rule out a possible colon mass as your current episode appears to be in the same location as your previous episode. Follow-up with your primary doctor in 5-7 days for reevaluation. Return to emergency department for any worsening symptoms. Scripts Ciprofloxacin Hcl (CIPRO) 500 Mg Tablet 1 TAB PO BID, #20 TAB Prov: DULCE WANG MD 04/27/19 Metronidazole (FLAGYL) 500 Mg Tablet 1 TAB PO TID for 10 Days, #30 TAB Prov: DULCE WANG MD 04/27/19 DULCE WANG MD Apr 27, 2019 09:00
[2019-04-27 09:04] LABS: BASO # 0.1 x10^3/uL (0.0-0.2); BASO % 1 % (0-3); EOS % 0 % (0-3); HEMATOCRIT 41.8 % (36.0-47.0); HEMOGLOBIN 13.9 g/dL (12.0-15.5); LYMPH # 1.3 x10^3/uL (1.0-4.8); LYMPH % 11 % (24-48); MEAN CORPUSCULAR HEMOGLOBIN 30 pg (25-35); MEAN CORPUSCULAR HGB CONC 33 g/dL (31-37); MEAN CORPUSCULAR VOLUME 91 fL (79-100); MONO % 8 % (0-9); NEUT % 81 % (31-73); PLATELET COUNT 213 x10^3/uL (140-400); RED BLOOD COUNT 4.59 x10^6/uL (3.50-5.40); RED CELL DISTRIBUTION WIDTH 12.7 % (11.5-14.5); WHITE BLOOD COUNT 12.4 x10^3/uL (4.0-11.0)
[2019-04-27 09:20] LABS: ALBUMIN 3.8 g/dL (3.4-5.0); ALBUMIN/GLOBULIN RATIO 1.2 (1.0-1.7); CALCIUM 9.5 mg/dL (8.5-10.1); CREATININE 0.8 mg/dL (0.6-1.0); GFR 74.5; TOTAL BILIRUBIN 0.6 mg/dL (0.2-1.0)
--- NOTE | 2019-04-27 09:24 | RAD ---
PQRS Compliance Statement: One or more of the following individualized dose reduction techniques were utilized for this examination: 1. Automated exposure control 2. Adjustment of the mA and/or kV according to patient size 3. Use of iterative reconstruction technique CT abdomen/pelvis with contrast 04/27/2019 8:34 AM INDICATION: Bilateral lower abdominal pain with history of diverticulitis COMPARISON: None available TECHNIQUE: Multiple axial CT images of the abdomen and pelvis were obtained after the intravenous administration of nonionic contrast. Coronal and sagittal reformats are provided. FINDINGS: Lung bases are clear. Heart size is within normal limits. Hypoattenuation of the hepatic parenchyma suggestive of hepatic steatosis. Spleen, bilateral adrenal glands and pancreas are normal in appearance. Calcified gallstone is identified within the gallbladder without adjacent inflammation. Abdominal aorta is normal in course and caliber. There are no pathologically enlarged lymph nodes in abdomen or pelvis. There is small volume free fluid within the disc. There is no free intraperitoneal air. There is eccentric wall thickening involving the sigmoid colon in a region of diverticulosis compatible with diverticulitis. Inflamed segment measures approximately 5.5 cm. There is minimal inflammation of an adjacent small bowel loop, likely reactive. No free air to suggest perforation. There is no peridiverticular abscess. The kidneys enhance symmetrically. There is no suspicious renal mass. There is no hydronephrosis. There are no suspected calculi within the kidneys, ureters or urinary bladder. Urinary bladder is within normal limits given degree of distention. Uterus and adnexa appear normal by CT. No suspicious osseous abnormality is identified. IMPRESSION: 1. Findings are compatible with diverticulitis. No evidence for microperforation or peridiverticular abscess. Findings are identified in similar region compared to prior CT from July 14, 2017. Recommend short-term follow-up evaluation with endoscopy to exclude neoplastic etiology. 2. Mild hepatic steatosis. 3. Cholelithiasis. Electronically signed by: Mansi Castañeda MD (04/27/2019 9:21 AM) [id number]
[2019-04-27 09:43] LABS: BILIRUBIN,URINE NEG (NEG); CLARITY,URINE HAZY; COLOR,URINE YELLOW; GLUCOSE,URINE NEG (NEG); NITRITE,URINE NEG (NEG); UROBILINOGEN,URINE 0.2 mg/dL (0.2 mg/dL)
[2019-04-27 09:44] LABS: BACTERIA,URINE MOD /HPF (0-FEW); SQUAMOUS EPITHELIAL CELL,UR MANY /LPF
[2019-04-27] MEDS ORDERED: METR500T PO (10:03)
[2019-04-27] MEDS ORDERED: CIPR500T94 PO (10:03)
== END 2019-04-27 10:11 | disposition home or self-care (01) ==
LOC: ER 08:08
DX: K57.92 Diverticulitis of intestine, part unspecified, without perforation or abscess without bleeding (principal); K76.0 Fatty (change of) liver, not elsewhere classified; K80.20 Calculus of gallbladder without cholecystitis without obstruction; F17.210 Nicotine dependence, cigarettes, uncomplicated; Z98.890 Other specified postprocedural states; Z88.0 Allergy status to penicillin
CPT/HCPCS: 36415; 74177; 80053; 81001; 83690; 85025; 87086; 99285; Q9967

== ENCOUNTER 2019-06-22 06:14 | Emergency (ER) | payer OTHER ==
[~2019-06-22] VITALS: Ht 165.1 cm; Wt 77.0 kg
[2019-06-22 06:14] VITALS: BP 136/92
[2019-06-22] MEDS ORDERED: CONTRAST GIVEN MC PRN (06:45)
[2019-06-22] MEDS ORDERED: AMOX1TAB61 PO (06:45)
[2019-06-22] MEDS ORDERED: METR500T PO (06:45)
[2019-06-22] MEDS ORDERED: CIPR500T PO (06:45)
--- NOTE | 2019-06-22 06:46 | PHYS DOC ---
Past History Past Medical History: Diverticulitis Past Surgical History: Additional Past Surgical Histo: D&C, shoulder Smoking: Cigarettes Alcohol Use: None Drug Use: None Adult General Chief Complaint Chief Complaint: ABDOMINAL PAIN [facility] HPI 64-year-old female presents with 3 day history of left lower quadrant abdominal pain. The patient has a history of frequent diverticulitis. This pain is very similar. She had a dose of Cipro and Flagyl at home so she took it yesterday and this is improved her pain. The patient about to go town and she does not have medication for a full course of treatment. We decided she should come in now for evaluation to see if this is diverticulitis so she can picker feeder treatment before going out of town. Patient denies fever or chills. She denies nausea or vomiting. Review of Systems Review of Systems Constitutional: Denies fever or chills [] Eyes: Denies change in visual acuity, redness, or eye pain [] HENT: Denies nasal congestion or sore throat [] Respiratory: Denies cough or shortness of breath [] Cardiovascular: No additional information not addressed in HPI [] GI: Left lower quadrant abdominal pain. Denies nausea, vomiting, bloody stools or diarrhea [] : Denies dysuria or hematuria [] Musculoskeletal: Denies back pain or joint pain [] Integument: Denies rash or skin lesions [] Neurologic: Denies headache, focal weakness or sensory changes [] Endocrine: Denies polyuria or polydipsia [] All other systems were reviewed and found to be within normal limits, except as documented in this note. Allergies Allergies Allergies Coded Allergies Type Severity Reaction Last Updated Verified Penicillins Allergy Unknown Itching 12/15/14 Yes Physical Exam Physical Exam Constitutional: Well developed, well nourished, no acute distress, non-toxic appearance. [] HENT: Normocephalic, atraumatic, bilateral external ears normal, oropharynx moist, no oral exudates, nose normal. [] Eyes: PERRLA, EOMI, conjunctiva normal, no discharge. [] Neck: Normal range of motion, no tenderness, supple, no stridor. [] Cardiovascular:Heart rate regular rhythm, no murmur [] Lungs & Thorax: Bilateral breath sounds clear to auscultation [] Abdomen: Bowel sounds normal, soft, mild LLQ tenderness, no masses, no pulsatile masses. [] Skin: Warm, dry, no erythema, no rash. [] Back: No tenderness, no CVA tenderness. [] Extremities: No tenderness, no cyanosis, no clubbing, ROM intact, no edema. [] Neurologic: Alert and oriented X 3, normal motor function, normal sensory function, no focal deficits noted. [] Psychologic: Affect normal, judgement normal, mood normal. [] EKG EKG [] Radiology/Procedures Radiology/Procedures [] Impressions: Examination: CT ABD PELV W/ IV CONTRST ONLY History: Left lower quadrant pain Comparison/Correlation: 04/27/2019 CT abdomen and pelvis with contrast Findings: Axial images of the abdomen and pelvis were obtained following IV contrast. Sagittal and coronal reformatted images were Visualized lung bases are clear. Liver, spleen, pancreas, and adrenal glands are normal. Small hiatal hernia is present. A 1 cm gallstone is present within the gallbladder. No biliary dilatation. Kidneys are unremarkable. Appendix is normal. It is fluid-filled but no significant distention is identified and there are no inflammatory findings. Diverticulosis of the colon is present. Circumferential wall thickening at the distal sigmoid colon is present with surrounding stranding. No loculated collection. No enlarged lymph nodes. Uterus is unremarkable. Moderate L5/S1 disc space narrowing is present. Disc osteophyte complexes noted with slight effacement of thecal sac. Impression: Circumferential wall thickening with surrounding stranding involving the distal sigmoid colon of concern for diverticulitis is notably improved since 04/27/2019 CT exam. Follow-up to resolution is recommended. Direct visualization should be considered to exclude possibility of neoplastic process. Cholelithiasis. Small hiatal. PQRS Compliance Statement: One or more of the following individualized dose reduction techniques were utilized for this examination: 1. Automated exposure control 2. Adjustment of the mA and/or kV according to patient size 3. Use of iterative reconstruction technique Electronically signed by: Nery Aponte MD (06/22/2019 7:48 AM) [id number] DICTATED AND SIGNED BY: NERY APONTE MD DATE: 06/22/19 0748 CC: NIAN CURRAN DO; JOSE RAUL STUART ~ Course & Med Decision Making Course & Med Decision Making Pertinent Labs and Imaging studies reviewed. (See chart for details) The patient does have diverticulitis. Her other labs are unremarkable. Her pain is well controlled. I we'll give her prescription for Augmentin as well as Cipro and Flagyl. She would like to try the Augmentin single pill treatment first. Since she is going out of town, I will provide her the other scripts as backup. She is stable for discharge at this time. [] Dragon Disclaimer Dragon Disclaimer This electronic medical record was generated, in whole or in part, using a voice recognition dictation system. Departure Departure: Impression: Primary Impression: Diverticulitis Disposition: HOME, SELF-CARE Condition: STABLE Referrals: JOSE RAUL STUART (PCP) Patient Instructions: Diverticulitis, Yaxv-se-Lcop Scripts Metronidazole (FLAGYL) 500 Mg Tablet 1 TAB PO BID for diverticulitis for 10 Days, #20 TAB Prov: NINA CURRAN DO 06/22/19 Ciprofloxacin Hcl (CIPROFLOXACIN HCL) 500 Mg Tablet 1 TAB PO BID for diverticulitis, #20 TAB Prov: NINA CURRAN DO 06/22/19 Amoxicillin/Potassium Clav (AUGMENTIN 875-125 TABLET) 1 Each Tablet 1 TAB PO BID for diverticulitis, #20 TAB Prov: NINA CURRAN DO 06/22/19 NINA CURRAN DO Jun 22, 2019 06:45
[2019-06-22 06:48] LABS: BASO % 1 % (0-3); EOS # 0.2 x10^3/uL (0.0-0.7); EOS % 5 % (0-3); HEMATOCRIT 39.8 % (36.0-47.0); HEMOGLOBIN 13.3 g/dL (12.0-15.5); LYMPH # 1.8 x10^3/uL (1.0-4.8); LYMPH % 42 % (24-48); MEAN CORPUSCULAR HEMOGLOBIN 31 pg (25-35); MEAN CORPUSCULAR HGB CONC 33 g/dL (31-37); MEAN CORPUSCULAR VOLUME 92 fL (79-100); MONO # 0.4 x10^3/uL (0.0-1.1); MONO % 10 % (0-9); NEUT # 1.9 x10^3uL (1.8-7.7); NEUT % 43 % (31-73); PLATELET COUNT 188 x10^3/uL (140-400); RED BLOOD COUNT 4.35 x10^6/uL (3.50-5.40); WHITE BLOOD COUNT 4.4 x10^3/uL (4.0-11.0)
[2019-06-22 06:59] LABS: ALBUMIN 3.5 g/dL (3.4-5.0); CALCIUM 9.3 mg/dL (8.5-10.1); CREATININE 0.8 mg/dL (0.6-1.0); GFR 74.2; POTASSIUM 3.7 mmol/L (3.5-5.1); TOTAL BILIRUBIN 0.3 mg/dL (0.2-1.0)
[2019-06-22] MEDS ORDERED: IOHEXOL 300 MG/ML 75 ML VIAL. IV ONE (07:00)
--- NOTE | 2019-06-22 07:51 | RAD ---
Examination: CT ABD PELV W/ IV CONTRST ONLY History: Left lower quadrant pain Comparison/Correlation: 04/27/2019 CT abdomen and pelvis with contrast Findings: Axial images of the abdomen and pelvis were obtained following IV contrast. Sagittal and coronal reformatted images were Visualized lung bases are clear. Liver, spleen, pancreas, and adrenal glands are normal. Small hiatal hernia is present. A 1 cm gallstone is present within the gallbladder. No biliary dilatation. Kidneys are unremarkable. Appendix is normal. It is fluid-filled but no significant distention is identified and there are no inflammatory findings. Diverticulosis of the colon is present. Circumferential wall thickening at the distal sigmoid colon is present with surrounding stranding. No loculated collection. No enlarged lymph nodes. Uterus is unremarkable. Moderate L5/S1 disc space narrowing is present. Disc osteophyte complexes noted with slight effacement of thecal sac. Impression: Circumferential wall thickening with surrounding stranding involving the distal sigmoid colon of concern for diverticulitis is notably improved since 04/27/2019 CT exam. Follow-up to resolution is recommended. Direct visualization should be considered to exclude possibility of neoplastic process. Cholelithiasis. Small hiatal. PQRS Compliance Statement: One or more of the following individualized dose reduction techniques were utilized for this examination: 1. Automated exposure control 2. Adjustment of the mA and/or kV according to patient size 3. Use of iterative reconstruction technique Electronically signed by: Juwan Yang MD (06/22/2019 7:48 AM) [facility]
== END 2019-06-22 08:11 | disposition home or self-care (01) ==
LOC: ER 06:14
DX: K57.32 Diverticulitis of large intestine without perforation or abscess without bleeding (principal); F17.210 Nicotine dependence, cigarettes, uncomplicated; Z98.890 Other specified postprocedural states; Z88.0 Allergy status to penicillin
CPT/HCPCS: 36415; 74177; 80053; 85025; 99285

== ENCOUNTER → 2021-07-05 | Outpatient (CLI) | payer OTHER ==
[~2021-07-05] MED LIST changes: +CIPR500T2 PO
--- NOTE | 2021-07-05 16:56 | RAD ---
CHEST CT WITHOUT CONTRAST CLINICAL INDICATIONS: Tobacco use and dyspnea. TECHNIQUE: Noncontrast helical CT scanning of the chest was performed. Without IV contrast, the sensi tivity to detect organ pathology is decreased. PQRS compliance Statement One or more of the following individualized dose reduction techniques were utilized for this study: 1. Automated exposure control 2. Adjustment of the mA and/or kV according to patient size 3. Use of iterative reconstruction technique COMPARISON: Abdomen CT dated June 22, 2019. No previous chest CT available. FINDINGS: No focal aneurysmal dilatation of the thoracic aorta is seen. The heart size is normal and no pericardial effusion is seen. No enlarged thoracic lymphadenopathy is apparent. No pleural effusio n or pneumothorax or pneumomediastinum is evident. No lung mass or lung infiltrate is seen. The proxi mal bronchial tree is patent. No lytic process is seen. No adrenal mass is evident. Heterogeneous brendon earance of the liver is seen which may be related to fatty infiltration of the liver. IMPRESSION: No lung mass or lung infiltrate is seen. Lung RADS category 1 Recommend annual screening study. Fatty infiltration of the liver. Electronically signed by: Florin Gomez MD (07/05/2021 4:54 PM) [id number]
== END ==
LOC: CT 11:01
PROVIDERS: ATTEND Physician Assistant
DX: R06.09 Other forms of dyspnea (principal); K76.0 Fatty (change of) liver, not elsewhere classified; Z72.0 Tobacco use
CPT/HCPCS: 71250